=== PATIENT | male | born 1965 | race African-American/Black ===

== ENCOUNTER 2017-05-11 16:46 | Inpatient (IN) | payer OTHER ==
[~2017-05-11] VITALS: Ht 177.8 cm; Wt 88.6 kg
[~2017-05-11 16:46] MED LIST: CLEOCIN300 MG PO; CLONIDINE HCL0.2 MG PO; MOTRIN600 MG PO
[2017-05-11 19:14] LABS: BASOPHIL (%) 0.1 % (0-1); EOSINOPHIL COUNT 0.1 K/uL (0-0.3); HEMATOCRIT 36.8 % (38.0-50.0); HEMOGLOBIN 12.5 G/DL (12.5-16.6); IMMATURE GRANULOCYTE (%) 0.4 % (0.0-0.7); LYMPHOCYTE (%) 27.1 % (15-42); LYMPHOCYTE COUNT 2.2 K/uL (1.0-2.8); MCH 27.1 PG (29.0-34.0); MCV 79.8 FL (86-99); MONOCYTE (%) 8.6 % (3-12); MONOCYTE COUNT 0.7 K/uL (0-0.8); NEUTROPHIL (%) 62.8 % (45-76); NEUTROPHIL COUNT 5.1 K/uL (1.8-6.4); PLATELET COUNT 137 K/uL (156-360); RBC DIS.WIDTH-CV 13.8 % (11.8-14.6); RBC DIS.WIDTH-SD 39.9 % (39-53); RED BLOOD COUNT 4.61 M/uL (4.00-5.50)
[2017-05-11 19:33] LABS: CHLORIDE 98 MEQ/L (99-109); POTASSIUM 3.8 MEQ/L (3.7-5.4); SODIUM 129 MEQ/L (136-147)
[2017-05-11 19:38] LABS: CREATININE 0.8 MG/DL (0.6-1.3); GFR ESTIMATE (CALCULATED) > 59 mL/min/ (58.99-99999); GLUCOSE 113 mg/dL (70-99); UREA NITROGEN (BUN) 14 mg/dL (9-23)
[2017-05-11] MEDS ORDERED: IBUPROFEN200 M1 PO (21:54)
[2017-05-11 22:26] LABS: APPEARANCE CLEAR ((CLEAR)); BILIRUBIN NEGATIVE; BLOOD SMALL; COLOR YELLOW ((YELLOW)); GLUCOSE (STRIP) NEGATIVE; KETONES 5; LEUKOCYTES NEGATIVE; NITRITE NEGATIVE; PROTEIN (STRIP) 100; SPECIFIC GRAVITY 1.038 (1.000-1.030); UROBILINOGEN 0.2 MG/DL (0.2-1.0)
[2017-05-11 22:31] LABS: BACTERIA NONE SEEN /HPF; EPITHELIAL CELLS RARE /HPF; MUCUS TRACE /LPF; RED BLOOD CELLS 0-5 /HPF (0-5); WHITE BLOOD CELLS 0-5 /HPF (0-5)
[2017-05-12] VITALS (8 sets, daily range): BP systolic 166–180; BP diastolic 81–99
[2017-05-12 10:19] LABS: HEMATOCRIT 35.3 % (38.0-50.0); HEMOGLOBIN 11.7 G/DL (12.5-16.6); MCH 26.9 PG (29.0-34.0); MCHC 33.1 G/DL (30.0-36.0); MCV 81.1 FL (86-99); PLATELET COUNT 133 K/uL (156-360); RBC DIS.WIDTH-SD 40.9 % (39-53); RED BLOOD COUNT 4.35 M/uL (4.00-5.50)
[2017-05-12 11:47] LABS: CHLORIDE 102 MEQ/L (99-109); CREATININE 0.8 MG/DL (0.6-1.3); GFR ESTIMATE (CALCULATED) > 59 mL/min/ (58.99-99999); GLUCOSE 410 mg/dL (70-99); POTASSIUM 4.2 MEQ/L (3.7-5.4); SODIUM 131 MEQ/L (136-147); UREA NITROGEN (BUN) 13 mg/dL (9-23)
[2017-05-12 13:45] LABS: HEMOGLOBIN A1c (GLYCOHEMOGLOB) 7.8 % (Below 5.7)
[2017-05-13] VITALS (7 sets, daily range): BP systolic 172–190; BP diastolic 81–100
[2017-05-13 06:24] LABS: BASOPHIL (%) 0.1 % (0-1); EOSINOPHIL (%) 0 % (0-5); HEMATOCRIT 35.1 % (38.0-50.0); HEMOGLOBIN 11.8 G/DL (12.5-16.6); IMMATURE GRANULOCYTE (%) 0.7 % (0.0-0.7); MCHC 33.6 G/DL (30.0-36.0); MCV 80.3 FL (86-99); MONOCYTE (%) 3.6 % (3-12); MONOCYTE COUNT 0.4 K/uL (0-0.8); NEUTROPHIL (%) 85.6 % (45-76); NEUTROPHIL COUNT 8.8 K/uL (1.8-6.4); PLATELET COUNT 157 K/uL (156-360); RBC DIS.WIDTH-CV 14.1 % (11.8-14.6); RBC DIS.WIDTH-SD 41.5 % (39-53); RED BLOOD COUNT 4.37 M/uL (4.00-5.50); WHITE BLOOD COUNT 10.3 K/uL (4.1-10.2)
[2017-05-13 06:49] LABS: CHLORIDE 104 MEQ/L (99-109); CREATININE 0.7 MG/DL (0.6-1.3); GFR ESTIMATE (CALCULATED) > 59 mL/min/ (58.99-99999); GLUCOSE 236 mg/dL (70-99); POTASSIUM 3.6 MEQ/L (3.7-5.4); SODIUM 137 MEQ/L (136-147); UREA NITROGEN (BUN) 13 mg/dL (9-23)
[2017-05-13 11:19] LABS: HDL CHOLESTEROL 45 MG/DL (Desirable>=40); LDL CHOLESTEROL 97 mg/dL (Desirable<100); NON-HDL CHOLESTEROL 111 mg/dL (Desirable<160); TOTAL CHOLESTEROL 156 mg/dL (Desirable<200); TRIGLYCERIDES 68 MG/DL (Normal: <150)
[2017-05-14] VITALS (8 sets, daily range): BP systolic 150–198; BP diastolic 80–104
[2017-05-14 10:49] LABS: CHLORIDE 101 MEQ/L (99-109); CREATININE 0.8 MG/DL (0.6-1.3); GFR ESTIMATE (CALCULATED) > 59 mL/min/ (58.99-99999); GLUCOSE 133 mg/dL (70-99); POTASSIUM 3.3 MEQ/L (3.7-5.4); SODIUM 137 MEQ/L (136-147); UREA NITROGEN (BUN) 13 mg/dL (9-23)
[2017-05-15 04:16] VITALS: BP 158/83
[2017-05-15 07:07] LABS: BASOPHIL (%) 0.1 % (0-1); EOSINOPHIL (%) 0 % (0-5); HEMATOCRIT 38.5 % (38.0-50.0); HEMOGLOBIN 12.8 G/DL (12.5-16.6); IMMATURE GRANULOCYTE (%) 0.9 % (0.0-0.7); LYMPHOCYTE (%) 23.4 % (15-42); LYMPHOCYTE COUNT 1.6 K/uL (1.0-2.8); MCH 26.1 PG (29.0-34.0); MCHC 33.2 G/DL (30.0-36.0); MCV 78.6 FL (86-99); MONOCYTE (%) 7.4 % (3-12); MONOCYTE COUNT 0.5 K/uL (0-0.8); NEUTROPHIL (%) 68.2 % (45-76); NEUTROPHIL COUNT 4.7 K/uL (1.8-6.4); PLATELET COUNT 196 K/uL (156-360); RBC DIS.WIDTH-SD 39.8 % (39-53); WHITE BLOOD COUNT 6.9 K/uL (4.1-10.2)
[2017-05-15 07:31] LABS: CHLORIDE 102 MEQ/L (99-109); CREATININE 0.8 MG/DL (0.6-1.3); GFR ESTIMATE (CALCULATED) > 59 mL/min/ (58.99-99999); GLUCOSE 148 mg/dL (70-99); POTASSIUM 3.4 MEQ/L (3.7-5.4); SODIUM 136 MEQ/L (136-147); UREA NITROGEN (BUN) 17 mg/dL (9-23)
[2017-05-15 08:15] VITALS: BP 180/106
[2017-05-15 11:31] VITALS: BP 162/90
[2017-05-15] MEDS ORDERED: AUGMENTIN875 MG PO (11:42)
[2017-05-15] MEDS ORDERED: METFORMIN HCL500 MG PO (11:42)
[2017-05-15] MEDS ORDERED: AMLODIPINE BESY10 MG PO (11:42)
[2017-05-15] MEDS ORDERED: LISINOPRIL40 MG PO (11:42)
== END 2017-05-15 13:05 | disposition home or self-care (01) | DRG 194 ==
LOC: EME 16:46 → 2EASTP 23:57 → EDOF 23:57 → ENRESERV 23:59 → 2EASTP 05-12 01:27
PROVIDERS: Hospitalist; Internal Medicine; Physician Assistant
DX: J15.4 Pneumonia due to other streptococci (principal); I10 Essential (primary) hypertension; D69.6 Thrombocytopenia, unspecified; E87.1 Hypo-osmolality and hyponatremia; E11.9 Type 2 diabetes mellitus without complications; F17.210 Nicotine dependence, cigarettes, uncomplicated; R09.02 Hypoxemia; E86.0 Dehydration; Z79.899 Other long term (current) drug therapy
CPT/HCPCS: 71045; 71275; 76770; 80048; 80061; 81003; 82948; 83036; 83605; 85025; 85027; 85379; 87040; 87070; 87106; 87205; 87449; 87502; 93975; 94640; 94640 76; 94644; 94799; 99202; 99281; 99285; J0360; J0456; J0696; J1644; J1815; J1885; J2920; J2930; J7030; J7512